=== PATIENT | female | born 1935 | race Caucasian/White ===

== ENCOUNTER → 2018-04-03 08:38 | Outpatient (CLI) | payer MEDICARE, OTHER, SELFPAY ==
[2018-04-03 10:11] LABS: Add Manual Diff / Slide Review NO; Basophils Percent Auto 0.7 % (0-2); Hematocrit 40.5 % (36-46); Hemoglobin 13.5 g/dL (12.0-16.0); Lymphocytes Percent Auto 28.5 % (25-40); Mean Corpuscular HGB Conc 33.5 % (30-36); Mean Corpuscular Hemoglobin 30.7 PG (26-34); Mean Corpuscular Volume 91.8 fL (80-100); Monocytes Percent Auto 12.8 % (3-14); Neutrophils Absolute Auto 3000 /uL (3000-5900); Platelet Count 311 X10^3/uL (150-400); Red Blood Cell Count 4.41 X10^6/uL (4.0-5.2); Red Cell Distribution Width 12.9 % (11.6-14.8); White Blood Cell Count 5.3 X10^3/uL (4.5-11.0)
[2018-04-03 10:49] LABS: Alanine Aminotransferase 24 IU/L (9-52); Albumin 4.6 g/dL (3.5-5.0); Albumin Globulin Ratio 1.8 (1.0-2.8); Alkaline Phosphatase 55 U/L (38-126); Aspartate Aminotransferase 28 IU/L (14-36); BUN Creatinine Ratio 35.7 (6-22); Bilirubin Total 0.5 mg/dL (0.2-1.3); Blood Urea Nitrogen 25 mg/dL (7-17); Calcium 9.8 mg/dL (8.4-10.2); Carbon Dioxide 33 mmol/L (22-32); Chloride 97 mmol/L (98-107); Cholesterol 198 mg/dL (140-199); Estimated Glomerular Filt Rate > 60.0 mL/min (>60); Globulin 2.6 g/dL (1.7-4.1); Glucose 107 mg/dL (80-110); HDL Cholesterol 64 mg/dL (40-60); HEMOLYSIS < 15 (0-50); LDL Cholesterol Calculated 99 mg/dL (<100); Potassium 4.4 mmol/L (3.4-5.1); Sodium 140 mmol/L (137-145); Total Protein 7.2 g/dL (6.3-8.2); Triglycerides 176 mg/dL (35-150)
== END ==
PROVIDERS: PCP Physician Assistant; Visit Provider Physician Assistant
DX: I10 Essential (primary) hypertension (principal); E78.00 Pure hypercholesterolemia, unspecified
CPT/HCPCS: 36415; 80053; 80061; 85025

== ENCOUNTER → 2019-02-05 09:10 | Outpatient (CLI) | payer MEDICARE, OTHER, SELFPAY ==
[2019-02-05 10:20] LABS: Alanine Aminotransferase 14 IU/L (9-52); Aspartate Aminotransferase 32 IU/L (14-36); BUN Creatinine Ratio 41.7 (6-22); Blood Urea Nitrogen 25 mg/dL (7-17); Calcium 9.6 mg/dL (8.4-10.2); Carbon Dioxide 31 mmol/L (22-32); Chloride 100 mmol/L (98-107); Cholesterol 222 mg/dL (140-199); Estimated Glomerular Filt Rate > 60.0 mL/min (>60); Glucose 102 mg/dL (80-110); HDL Cholesterol 61 mg/dL (40-60); HEMOLYSIS < 15 (0-50); LDL Cholesterol Calculated 126 mg/dL (<100); Potassium 4.2 mmol/L (3.4-5.1); Sodium 139 mmol/L (137-145); Triglycerides 174 mg/dL (35-150)
== END ==
PROVIDERS: PCP Physician Assistant; Visit Provider Internal Medicine
DX: I10 Essential (primary) hypertension (principal); E78.00 Pure hypercholesterolemia, unspecified
CPT/HCPCS: 36415; 80048; 80061; 84450; 84460

== ENCOUNTER → 2019-06-21 09:30 | Outpatient (CLI) | payer MEDICARE, OTHER, SELFPAY ==
--- NOTE | 2019-06-21 | DI.MRI.S_ITS ---
PROCEDURE: MR LUMBAR SPINE WO CON INDICATIONS: Radiculopathy, lumbosacral region TECHNIQUE: Noncontrast sagittal T1 spin echo and T2 fast echo, sagittal STIR, axial T1 and T2 fast spin echo through the lumbar spine. In cases with scoliosis, additional coronal T2 fast spin echo may be performed. COMPARISON: None. FINDINGS: Image quality: Limited by motion artifact. Alignment and Curvature: There is trace L1-L2 and L2-L3 retrolisthesis. There is 20? of convex left thoracolumbar spine scoliosis. Bones: Postsurgical changes compatible with L3-L4 posterior and interbody fusion as well as L4-L5 interbody fusion noted. Reactive endplate changes adjacent to L1-L2, L2-L3 and L5-S1 discs. No acute vertebral body compression fractures. Spinal Cord: Conus medullaris terminates at the L1 level. Visualized cord demonstrates normal signal and size. Paraspinous Soft Tissues: No paravertebral masses. L1-L2: Loss of disc signal and height. Moderate, diffuse disc bulge. Mild bilateral facet hypertrophy. Mild to moderate narrowing of the central canal. Severe right and moderate left neural foraminal narrowing with compression of the exiting right L1 nerve root. L2-L3: Loss of disc signal and height. Moderate, diffuse disc bulge. [id number] facet and moderate ligamentum flavum hypertrophy. Severe narrowing of the central canal with compression of the nerve roots of the cauda equina. Severe bilateral neural foraminal narrowing with compression of the exiting L2 nerve roots. L3-L4: Status post fusion. Postsurgical changes compatible with L3 laminectomy. No central stenosis. Moderate bilateral facet hypertrophy. Moderate right and mild left neural foraminal narrowing. No neural compression. L4-L5: Status post fusion. Mild bilateral facet hypertrophy. No central stenosis. Mild right and [id number] left neural foraminal narrowing with slight compression of the exiting left L4 nerve root. L5-S1: Loss of disc signal and height. Mild, diffuse disc bulge and mild bilateral facet atrophy. No central stenosis. Mild right and [id number]-[id number]-[id number] left neural foraminal narrowing with slight compression of the exiting left L5 nerve root. IMPRESSION: 1. Postsurgical changes. 2. Convex left scoliosis. 3. Severe L2-L3 central canal narrowing. Mild to moderate L1-L2 Central canal narrowing. 4. Severe bilateral L2-L3 neuroforaminal narrowing. Severe right and moderate left L1-L2 neural foraminal narrowing. Mild right and moderate to severe left L4-L5 and L5-S1 neural foraminal narrowing. Moderate amount of L3-L4 neural foraminal narrowing. 5. Compression of the nerve roots of the cauda equina the level of the L2-L3 disc secondary to central canal narrowing. 6. Compression the exiting right L1 nerve root, exiting bilateral L2 nerve roots, exiting left L4 nerve root and exiting left L5 nerve root secondary to neural foraminal narrowing. Dictated by: Olivia Singh MD, PhD on 06/21/2019 at 16:09 Approved by: Olivia Singh MD, PhD on 06/21/2019 at 16:22
== END ==
PROVIDERS: PCP Physician Assistant; Visit Provider Physical Medicine & Rehabilitation Pain Medicine
DX: M54.17 Radiculopathy, lumbosacral region (principal); M41.85 Other forms of scoliosis, thoracolumbar region; M48.061 Spinal stenosis, lumbar region without neurogenic claudication; M48.07 Spinal stenosis, lumbosacral region; Z98.1 Arthrodesis status
CPT/HCPCS: 72148

== ENCOUNTER → 2019-06-24 14:46 | Outpatient (ROUT) | payer MEDICARE, OTHER, SELFPAY ==
[2019-06-24 15:03] LABS: Alanine Aminotransferase 24 IU/L (9-52); Albumin 4.6 g/dL (3.5-5.0); Albumin Globulin Ratio 1.7 (1.0-2.8); Alkaline Phosphatase 60 U/L (38-126); Aspartate Aminotransferase 27 IU/L (14-36); Bilirubin Total 0.5 mg/dL (0.2-1.3); Blood Urea Nitrogen 27 mg/dL (7-17); Calcium 9.7 mg/dL (8.4-10.2); Carbon Dioxide 28 mmol/L (22-32); Chloride 99 mmol/L (98-107); Cholesterol 197 mg/dL (140-199); Estimated Glomerular Filt Rate > 60.0 mL/min (>60); Globulin 2.7 g/dL (1.7-4.1); Glucose 101 mg/dL (80-110); HDL Cholesterol 58 mg/dL (40-60); HEMOLYSIS < 15 (0-50); LDL Cholesterol Calculated 96 mg/dL (<100); Potassium 4.2 mmol/L (3.4-5.1); Sodium 135 mmol/L (137-145); Total Protein 7.3 g/dL (6.3-8.2); Triglycerides 217 mg/dL (35-150)
== END ==
PROVIDERS: PCP Physician Assistant; Visit Provider Physician Assistant
DX: E78.00 Pure hypercholesterolemia, unspecified (principal); I10 Essential (primary) hypertension
CPT/HCPCS: 80053; 80061

== ENCOUNTER → 2022-05-20 11:14 | Outpatient (CLI) | payer MEDICARE, OTHER, SELFPAY | PROVIDERS: PCP Physician Assistant; Visit Provider Physician Assistant Medical | DX: R30.0 Dysuria (principal) | CPT/HCPCS: 87077; 87086; 87186 ==

== ENCOUNTER → 2023-04-20 10:13 | Outpatient (CLI) | payer MEDICARE, OTHER, SELFPAY ==
[2023-04-20 11:12] LABS: Influenza A - CEPHEID Flu A NEGATIVE (NEGATIVE); Influenza B - CEPHEID Flu B NEGATIVE (NEGATIVE); Respiratory Syncytial Virus Negative (Negative)
[2023-04-20 11:23] LABS: COVID-19 CEPHEID 4-PLEX PCR Negative (Negative)
== END ==
PROVIDERS: PCP Physician Assistant; Visit Provider Physician Assistant
DX: R05.9 Cough, unspecified (principal)
CPT/HCPCS: 0241U

== ENCOUNTER → 2023-04-20 11:12 | Outpatient (CLI) | payer MEDICARE, OTHER, SELFPAY ==
--- NOTE | 2023-04-20 11:14 | DI.RAD.S_ITS ---
PROCEDURE: XR CHEST 2V INDICATIONS: Worsened cough over the last week TECHNIQUE: 2 views of the chest were acquired. COMPARISON: [facility], , CHEST 2 VIEW, 12/05/2016, 10:19. FINDINGS: Surgical changes and devices: Cardiac monitoring device to the left chest wall. Posterior fixation of the right lumbar spine. Lungs and pleura: Lungs are clear. No pleural effusions or pneumothorax. Mediastinum: Mediastinal contours are normal. Heart size is normal. Bones and chest wall: No suspicious bony abnormalities. Soft tissues appear unremarkable. IMPRESSION: No acute cardiopulmonary findings. Dictated by: Antoine Hartmann M.D. on 04/20/2023 at 10:39 Approved by: Antoine Hartmann M.D. on 04/20/2023 at 10:40
== END ==
PROVIDERS: PCP Physician Assistant; Referring Provider Physician Assistant; Visit Provider Physician Assistant
DX: R05.9 Cough, unspecified (principal); R05.1 Acute cough; Z20.822 Contact with and (suspected) exposure to COVID-19
CPT/HCPCS: 0241U; 71046; C9803